=== PATIENT | male | born 1965 | race Two or more races ===

== ENCOUNTER 2022-06-06 10:02 | Emergency (ER) | payer OTHER ==
[~2022-06-06] VITALS: Ht 175.3 cm; Wt 72.6 kg
[2022-06-06] MEDS ORDERED: CIPRO500 MG PO (15:09)
== END 2022-06-06 15:27 | disposition home or self-care (01) ==
LOC: ER 10:02
DX: R30.0 Dysuria (principal); R31.9 Hematuria, unspecified

== ENCOUNTER 2024-02-11 00:24 | Emergency (ER) | payer OTHER ==
[~2024-02-11] VITALS: Ht 177.8 cm; Wt 72.6 kg
[~2024-02-11 00:24] MED LIST: CIPRO500 MG PO
[2024-02-11] MEDS ORDERED: RAPAFLO8 MG PO (00:29)
[2024-02-11] MEDS ORDERED: levoFLOXacin IN DEXTROSE 5 % 5 MG/ML PIGGYBAG IV ONE (01:00)
[2024-02-11 01:25] LABS: URINE APPEARANCE Cloudy; URINE BILIRRUBIN Negative (NEGATIVE); URINE BLOOD Large; URINE COLOR Orange; URINE GLUCOSE Negative (NEGATIVE); URINE KETONE Trace (NEGATIVE); URINE LEUKOCYTE Small; URINE NITRATE Negative
[2024-02-11 01:26] LABS: HEMATOCRIT 39.2 % (39.0-48.0); HEMOGLOBIN 13.7 g/dL (13-16.00); MEAN CELL VOLUME 92.8 fL (80.0-100.00); MEAN CORPUSCULAR HEMOGLOBIN 32.3 pg (27.00-32.0); MEAN CORPUSCULAR HGB CONC 34.8 g/dl (32.0-36.0); PLATELET COUNT 276 K/uL (150-450); RED BLOOD COUNT 4.23 M/uL (4.00-6.00); RED CELL DISTRIBUTION WIDTH 13.1 % (11.5-14.5)
[2024-02-11 01:29] LABS: URINE EPITHELIAL CELLS 4.4 uL (0.0-38.8); URINE RBC 6234.8 uL (0.0-20.8)
[2024-02-11 01:49] LABS: URINE CAST 0.15 uL (0.0-1.40); URINE PROTEIN 100 (NEGATIVE)
[2024-02-11 02:08] LABS: ALBUMIN 4.2 gm/dL (3.4-5.0); BILIRUBIN TOTAL 1.51 mg/dL (0.3-1.2); CALCIUM 9.1 mg/dL (8.5-10.1); CREATININE SERUM 0.97 mg/dL (0.70-1.30); GFR 79.22; GLOBULINA 2.9 G/DL (2.4-3.5); POTASSIUM 4.43 mEq/L (3.5-5.1); PROSTATIC SPECIFIC ANTIGEN 0.565 NG/ML (0.010-4.00); TOTAL PROTEIN 7.1 gm/dL (6.4-8.2)
[2024-02-11] MEDS ORDERED: LEVOFLOXACIN750 MG PO (02:52)
== END 2024-02-11 03:13 | disposition home or self-care (01) ==
LOC: ER 00:25
PROVIDERS: General Practice
DX: R31.9 Hematuria, unspecified (principal); N40.0 Benign prostatic hyperplasia without lower urinary tract symptoms; N32.3 Diverticulum of bladder